=== PATIENT | female | born 1935 | race Caucasian/White ===

== ENCOUNTER 2017-12-21 13:22 | Day surgery (SDC) | payer MEDICARE, OTHER ==
[~2017-12-21] VITALS: Ht 154.9 cm; Wt 54.1 kg
[2017-12-21 12:25] VITALS: BP 138/71
[~2017-12-21 13:22] MED LIST: ACET-2119 PO; ACYC400T PO; AMIT10TA6 PO; APIX5TAB3 PO; ASCO100T12 PO; ATOR80TA PO; CHOL400T57 PO; ENOX60SY7 SQ; ESTR2TAB PO; EZET10TA13 PO; FENO145T36 PO; LEVO25TA2 PO; OMEG1CAP46 PO; PREVCR VG; RAMI10CA PO; RYT225T PO; ZINC50TA60 PO
[2017-12-21] MEDS ORDERED: MIDAZolam 5mg/5ml vial ONE (13:45)
[2017-12-21] MEDS ORDERED: fentaNYL/PF 50MCG/1 ML 2ML syringe ONE (13:45)
[2017-12-21] MEDS ORDERED: GABA100C PO (13:46)
[2017-12-21] MEDS ORDERED: METO1TAB25 PO (13:46)
[2017-12-21 14:23] VITALS: BP 124/67
[2017-12-21 14:33] VITALS: BP 131/70
[2017-12-21 14:43] VITALS: BP 133/65
[2017-12-21 14:53] VITALS: BP 125/65
== END 2017-12-21 15:00 | disposition home or self-care (01) ==
LOC: GI LAB 13:22
PROVIDERS: ATTEND Internal Medicine Gastroenterology
DX: D12.2 Benign neoplasm of ascending colon (principal); K57.30 Diverticulosis of large intestine without perforation or abscess without bleeding; K64.8 Other hemorrhoids; I10 Essential (primary) hypertension; I25.10 Atherosclerotic heart disease of native coronary artery without angina pectoris; E78.5 Hyperlipidemia, unspecified; I48.0 Paroxysmal atrial fibrillation; Z79.01 Long term (current) use of anticoagulants; Z88.5 Allergy status to narcotic agent; Z86.73 Personal history of transient ischemic attack (TIA), and cerebral infarction without residual deficits; Z95.0 Presence of cardiac pacemaker; Z87.891 Personal history of nicotine dependence; Z95.1 Presence of aortocoronary bypass graft; Z88.6 Allergy status to analgesic agent; Z88.8 Allergy status to other drugs, medicaments and biological substances; Z79.899 Other long term (current) drug therapy; Z98.890 Other specified postprocedural states
CPT/HCPCS: 45381; 45385; G0500; J2250; J3010; J7030; A4620